=== PATIENT | female | born 1945 | race Caucasian/White ===

== ENCOUNTER 2017-10-08 09:38 | Observation (INO) | payer MEDICARE, BC ==
--- NOTE | 2017-10-08 10:02 | RAD ---
AP VIEW CHEST: Date: 10/08/17 HISTORY: Shortness of breath. FINDINGS: The lungs are well aerated. No evidence of active intrathoracic disease seen. No evidence of effusion s, pneumonia, or pneumothorax seen. IMPRESSION: Unremarkable AP view of chest. POS: [facility]
[2017-10-08 10:13] LABS: #Eosinphils 0.2 thou/uL (0.0-0.7); #Lymphocytes 1.9 thou/uL (1.20-3.40); #Monocytes 0.7 thou/uL (0.11-0.59); #Neutrophils 3.5 thou/uL (1.40-6.50); %Basophils 0.8 % (0.0-1.0); %Eosinophils 3.7 % (0.0-10.0); %Lymphocytes 29.2 % (21.0-51.0); %Monocytes 11.1 % (0.0-10.0); %Neutrophils 55.3 % (42.0-75.0); Hemoglobin 13.8 g/dL (12.0-16.0); Mean Corpuscular HGB CONC 33.2 g/dL (32.0-36.0); Mean Corpuscular Hemoglobin 32.4 pg (27.0-31.0); Mean Corpuscular Volume 97.7 fl (81.0-99.0); Mean Platelet Volume 7.5 fL (7.4-10.4); Platelet Count 191 thou/uL (130-400); RBC Distribution Width 12.4 % (11.5-14.5); Red Blood Cell (RBC) Count 4.26 mill/uL (4.20-5.40); White Blood Cell (WBC) Count 6.4 thou/uL (4.8-10.8)
[2017-10-08 10:35] LABS: ALT (SGPT) 17 U/L (8-55); AST (SGOT) 14 U/L (5-34); Albumin 4.4 g/dL (3.4-4.8); Alkaline Phosphatase 57 U/L (40-150); Anion Gap 15 mmol/L (10-20); BUN (Urea Nitrogen) 27 mg/dL (9.8-20.1); Bilirubin, Total 0.5 mg/dL (0.2-1.2); Calc. Creatinine Clearance 0 mL/min (70-130); Calcium 9.7 mg/dL (7.8-10.44); Carbon Dioxide 26 mmol/L (23-31); Chloride 104 mmol/L (98-107); Estimated GFR-MDRD 40; Globulin 3.1 g/dL (2.4-3.5); Glucose 115 mg/dL (80-115); Potassium 3.6 mmol/L (3.5-5.1); Protein, Total 7.5 g/dL (6.0-8.3); Sodium 141 mmol/L (136-145)
[2017-10-08 10:39] LABS: CKMB 1.8 ng/mL (0-6.6); Troponin I Less than 0.010 ng/mL (< 0.028)
--- NOTE | 2017-10-08 12:49 | CT ---
CONTRAST ENHANCED CTA CHEST: Date: 10/08/17 HISTORY: Dyspnea. TECHNIQUE: 2D and 3D reconstructed images performed on an independent 3D workstation. FINDINGS/IMPRESSION: The lung parenchyma demonstrates multiple tiny pulmonary parenchymal nodules, too numerous to count, all being quite small, in the 2-3 mm range. Differential diagnosis includes extensive metastatic dise ase versus infectious etiology. No evidence of axillary, hilar, or mediastinal lymphadenopathy is seen. The thyroid gland definitivel y is not visualized. No evidence of filling defects seen in the pulmonary arteries to suggest pulmonary emboli. The thorac ic aorta is also unremarkable. Some coronary artery calcification is seen in the distalmost aspect of the left main coronary artery. No evidence of pleural or pericardial effusions seen. There does appe ar to be a hiatal hernia. POS: [facility]
[2017-10-08 14:13] LABS: Troponin I 0.011 ng/mL (< 0.028)
[2017-10-08] MEDS ORDERED: ISOVUE-370 76%-LOCM 1 ML ONE (14:29)
[2017-10-08 16:32] VITALS: BMI 36.5
[2017-10-08] MEDS ORDERED: Ondansetron HCl/PF 4 MG/2 ML Vial IVP PRN (16:36)
[2017-10-08] MEDS ORDERED: Acetaminophen 325 MG TAB PO PRN (16:36)
[2017-10-08] MEDS ORDERED: Ondansetron ODT 4 MG TAB SL PRN (16:36)
[2017-10-08 17:12] LABS: Troponin I Less than 0.010 ng/mL (< 0.028)
[2017-10-08] MEDS ORDERED: Mirtazapine 15 MG TAB PO PRN (18:08)
[2017-10-08] MEDS ORDERED: Lorazepam 0.5 MG TAB PO SCH (18:15)
[2017-10-08] MEDS ORDERED: Lorazepam 0.5 MG TAB PO PRN (20:21)
--- NOTE | 2017-10-08 20:29 | HP ---
DATE OF ADMISSION: 10/08/2017 ADMITTING PHYSICIAN: Adolfo Castanon M.D. PRIMARY CARE PHYSICIAN: Ming Smith M.D. CHIEF COMPLAINT: Shortness of breath. HISTORY OF PRESENT ILLNESS: The patient is a pleasant 72-year-old female with a history of dyslipide kimani, obesity, hypothyroidism. The patient reports that since Tuesday, she began experiencing short ness of breath and difficulty sleeping. She reports that the shortness of breath actually improved w hen she ambulates and moves around. Of note, the patient did have 2 deaths in the family recently in cluding her 2 years ago and the anniversary that was this past Tuesday. She does report some anxiety and difficulty sleeping. She denies chest pain, nausea, vomiting, diarrhea, cough, black or bloody stools. She denies calf tenderness, fevers, chills, or any recent falls. REVIEW OF SYSTEMS: The following complete review of systems was negative, unless otherwise mentioned in the HPI or below: Constitutional: Weight loss or gain, sense of well-being, ability to conduct usual activities, exerc ise tolerance. Skin/Breast: Rash, itching, changes in hair growth or loss, nail changes, breast lumps, tenderness, swelling, nipple discharge. Eyes: Vision, double vision, tearing, blind spots, pain. ENT/Mouth: Headaches (location, time of onset, duration, precipitating factors), vertigo, lightheade dness, injury. Vision, double vision, tearing, blind spots, pain, nose bleeding, colds, obstruction, discharge, dental difficulties, gingival bleeding, dentures, neck stiffness, pain, tenderness, masses in thyroid or other areas. Cardiovascular: Precordial pain, substernal distress, palpitations, syncope, dyspnea on exertion, or thopnea, nocturnal paroxysmal dyspnea, edema, cyanosis, hypertension, heart murmurs, varicosities, ph lebitis, claudication. Respiratory: Pain, shortness of breath, wheezing, stridor, cough, hemoptysis, fever or night sweats. Gastrointestinal: Poor appetite, dysphagia, indigestion, abdominal pain, heartburn, eructation, naus ea, vomiting, hematemesis, jaundice, constipation, or diarrhea, abnormal stools (murali-colored, tarry, bloody, greasy, foul smelling), flatulence, hemorrhoids, recent changes in bowel habits. Genitourinary: Urgency, frequency, dysuria, nocturia, hematuria, polyuria, oliguria, unusual (or ivan nge in) color of urine, stones, hesitancy, change in the size of stream, dribbling, acute retention o r incontinence, libido, potency. Musculoskeletal: Pain, swelling, redness or heat of muscles or joints, limitation, of motion, muscul ar weakness, atrophy, cramps. Neurologic/Psychiatric: Convulsions, paralyses, tremor, incoordination, paresthesias, difficulties w ith memory of speech, sensory or motor disturbances, or muscular coordination (ataxia, tremor), emoti onal problems, anxiety, depression, previous psychiatric care, unusual perceptions, hallucinations. Allergy/Immunologic: Skin rash, anemia, bleeding tendency, polydipsia, polyuria, intolerance to heat or cold. PAST MEDICAL HISTORY: Significant for dyslipidemia, obesity, hypothyroidism, hypertension. PAST SURGICAL HISTORY: section x2. PSYCHIATRIC HISTORY: Some anxiety. SOCIAL HISTORY: Denies alcohol, drugs, or smoking. Once again, she is a and had a brother who recently of heart disease. FAMILY HISTORY: Reviewed and noncontributory to this case. HOME MEDICATIONS: Include metoprolol 50 mg daily, levothyroxine 100 mcg daily, calcium 150 mg daily, lisinopril 10 mg daily. DRUG ALLERGIES: No known drug allergies. PHYSICAL EXAMINATION: VITAL SIGNS: Blood pressure 135/71, pulse 95, respirations 20, pain 0/10, satting 100% on room air. GENERAL: She is mildly anxious but pleasant, cooperative, coherent. HEENT: Normocephalic, atraumatic. EYES: PERRL. Extraocular muscles intact. ENT: External ear exam normal. External nose exam normal. Mouth moist, pink mucous membranes. NECK: Supple, full range of motion. Trachea midline. LUNGS: Clear to auscultation. CARDIAC: Regular rate and rhythm, no murmurs, regurg, or gallops. ABDOMEN: Obese, nontender. Positive bowel sounds. EXTREMITIES: No clubbing, cyanosis, or edema. NEUROLOGIC: Full range of motion of all extremities. Cranial nerves II through XII grossly intact. She is alert and oriented x3. LABORATORY DATA: EKG in the emergency department showed sinus tachycardia with signs of left atrial enlargement. Chest x-ray showed no acute pulmonary disease. Chest CT did show some calcification of the distal left main coronary artery. No PE. CBC shows a white count of 6.4, hemoglobin 13.8, ad tocrit 41.6, platelets 191, no bandemia. Coag studies show a D-dimer of 2.27. Chem-7 shows a sodium of 141, potassium 3.6, chloride 104, carbon dioxide 26, BUN 27, creatinine 1.32, glucose 115, calciu m 9.7, AST 14, ALT 17. Cardiac enzymes: A CK-MB fraction of 1.8, troponin I of less than 0.01, 0.01 1, and less than 0.01, respectively. BNP of 40.6. Albumin 4.4. ASSESSMENT AND PLAN: 1. Shortness of breath, possible anginal equivalent. We will rule out acute coronary syndrome. 2. Hypothyroidism. 3. Possible anxiety, depression. The patient will be admitted to observation. We will obtain stress test as her last stress was perfo rmed over 5 years ago. Her bleach liquor maker is Dr. Middleton. We will consult him if her stress test sh ows positive signs of ischemia. The patient will be treated with Lovenox for venous thromboembolism prophylaxis. We will provide antianxiety medication as needed and if her cardiac workup is negative, she is encouraged to seek a grief counseling and follow up with her PCP.
[2017-10-08] MEDS ORDERED: Aspirin 81 mg Enteric Coated Tablet PO SCH (21:00)
[2017-10-08] MEDS ORDERED: Lisinopril/Hydrochlorothiazide 10 mg/12.5 mg Tablet PO SCH (21:00)
[2017-10-08] MEDS ORDERED: Rosuvastatin 5 MG TAB PO SCH (21:00)
[2017-10-08] MEDS ORDERED: Enoxaparin Sodium 40 MG/0.4 ML SYRINGE SC SCH (21:00)
[2017-10-08] MEDS ORDERED: Calcium Carbonate + Vit D 1 TAB PO SCH (21:00)
[2017-10-09] MEDS ORDERED: Levothyroxine Sodium 88 MCG TAB PO SCH (06:00)
[2017-10-09 08:01] VITALS: BP 123/59; TEMP 98.5
[2017-10-09] MEDS ORDERED: Acetaminophen 325 MG TAB PO PRN (08:31)
[2017-10-09] MEDS ORDERED: ADENOSINE 60 MG/20 ML VIAL ONE (12:01)
--- NOTE | 2017-10-09 14:03 | NM ---
STRESS ONLY NUCLEAR MEDICINE EXAMINATION: HISTORY: Chest pain. Hypertension. Dyslipidemia. COMPARISON: None. TECHNIQUE: Stress only test was performed after the intravenous administration of 32.7 mCi technetium-99m sestam ibi. FINDINGS: On the stress examination, there is normal radiopharmaceutical uptake of the left ventricle. No evide nce of scar or ischemia. Calculated ejection fraction is 85%. IMPRESSION: Normal stress only exam. POS: [facility]
--- NOTE | 2017-10-09 21:44 | DIS ---
DATE OF ADMISSION: 10/08/2017 DATE OF DISCHARGE: 10/09/2017 PRIMARY DISCHARGE DIAGNOSES: 1. Anxiety, grief reaction. 2. Hypothyroidism. 3. Hypertension. 4. Abnormal chest CT. HOSPITAL COURSE: The patient was admitted after complaining of 2-3 days of shortness of breath. She reported that the shortness of breath was relieved by getting out of the house and walking around. It was revealed that the patient recently lost her as well as brother, and it was near her we dding anniversary. It was felt after thorough review of history that this may have been a panic and/ or anxiety attack. Nevertheless, a nuclear stress medicine test was performed. The active portion o f the test showed a calculated ejection fraction of 85% with no signs of scar or ischemia. The patie nt did have a chest CT to rule out PE, it was noted that she had numerous 2-3 mm nodules throughout h er lungs, which could be suspicious for infection and/or neoplastic process. There was no lymphadeno hong per CAT scan. The patient was informed to follow up with her PCP to see if further workup was needed. DISCHARGE DISPOSITION: Home. DISCHARGE DIET: Cardiac, heart healthy. DISCHARGE MEDICATIONS: The patient is to resume home meds per her reconciliation sheet. PHYSICAL EXAMINATION: GENERAL: No acute distress. HEENT: Head, normocephalic, atraumatic. Eyes: PERRL. Extraocular muscles intact. LUNGS: Clear to auscultation. CARDIAC: Regular rate and rhythm, no murmurs or gallops. ABDOMEN: Obese, nontender. EXTREMITIES: No clubbing, cyanosis or edema. FOLLOWUP: The patient is to follow up with her PCP within 7-10 days. They are to address further ne ed for Pulmonary workup for the small nodules throughout her lung parenchyma.
--- NOTE | 2017-10-15 12:21 | EKG ---
Test Reason : SOB Blood Pressure : / mmHG Vent. Rate : 134 BPM Atrial Rate : 134 BPM P-R Int : 134 ms QRS Dur : 082 ms QT Int : 298 ms P-R-T Axes : 053 006 050 degrees QTc Int : 445 ms Sinus tachycardia Possible Left atrial enlargement Possible Inferior infarct , age undetermined Abnormal ECG Confirmed by RAMIRO CARSON M.D. ([id number]), food editor TONY CRUZ ([id number]) on 10/15/2017 12:21:02 PM Referred By: Confirmed By:RAMIRO CARSON M.D.
== END 2017-10-09 14:15 | disposition home or self-care (01) ==
LOC: ERS 09:38 → 2SW 15:59
PROVIDERS: ADMIT Internal Medicine Addiction Medicine; ATTEND Internal Medicine Addiction Medicine
DX: F43.22 Adjustment disorder with anxiety (principal); E03.9 Hypothyroidism, unspecified; I10 Essential (primary) hypertension; R91.8 Other nonspecific abnormal finding of lung field; E78.5 Hyperlipidemia, unspecified; E66.9 Obesity, unspecified; Z68.36 Body mass index [BMI] 36.0-36.9, adult; Z79.899 Other long term (current) drug therapy; R07.89 Other chest pain
CPT/HCPCS: 71045; 71275; 78452; 80053; 82553; 83880; 84484 ×2; 85025; 85379; 93005; 93017; 94760; 96360; 96361; 96372; 99285; A9500; G0378; 36415; J0153; J1650

== ENCOUNTER 2018-02-03 12:34 | Outpatient (CLI) | payer MEDICARE, BC ==
--- NOTE | 2018-02-03 14:37 | CT ---
CT CHEST NONCONTRAST: History: Lung nodules. Follow up. Comparison: 10-08-17 FINDINGS: The tiny subpleural hazy nodules at the right posterolateral lung base are less conspicuous than on t he prior study. No new parenchymal lung mass. Calcified granulomata within the lungs and spleen are consistent with healed granulomatous disease. N o pleural fluid. There is calcification in the aortic arch and bovine origin of the great vessels. La ck of contrast limits evaluation of the soft tissues. No bulky adenopathy. Small hiatal hernia. IMPRESSION: 1. Interval decreased in conspicuity of the tiny subpleural right lower lobe nodules. No further foll ow up is needed. 2. Atherosclerosis. 3. Small hiatal hernia. POS: [facility]
== END 2018-02-03 12:35 | disposition home or self-care (01) ==
LOC: SCSCT 12:34
PROVIDERS: ATTEND Internal Medicine
DX: J84.10 Pulmonary fibrosis, unspecified (principal); R91.8 Other nonspecific abnormal finding of lung field; I70.90 Unspecified atherosclerosis; K44.9 Diaphragmatic hernia without obstruction or gangrene
CPT/HCPCS: 71250